=== PATIENT | male | born 1935 | race Caucasian/White ===

== ENCOUNTER 2018-07-05 14:55 | Emergency (ER) | payer MEDICARE ==
[~2018-07-05] VITALS: Ht 182.9 cm; Wt 102.1 kg
[2018-07-05] MEDS ORDERED: TETANUS/DIPHTHERIA TOX ADULT 0.5 ML SYR IM ONE (15:15)
--- NOTE | 2018-07-05 16:37 | Diagnostic Imaging Report ---
Exams: Head and maxillofacial CTs without IV contrast History: Trauma, fall Comparison studies: None Technique: Axial images were obtained to the vertex and maxillofacial region. Coronal and sagittal images reconstructed from the axial data. Dose modulation, iterative reconstruction, and/or weight based adjustment of the mA/kV was utilized to reduce the radiation dose to as low as reasonably achievable. Intravenous contrast: None Findings: Scalp: Left paramedian frontal/supraorbital soft tissue hematoma. Bones: No fractures, blastic or lytic lesions. Brain sulci: Mildly prominent. Ventricles: Mild compensatory dilatation. No hydrocephalus. Extra axial spaces: No mass, no fluid collection. Parenchyma: No mass, acute hemorrhage or acute or chronic cortical vascular insults. Scattered ill-defined and mildly confluent hypodensities in the supratentorial white matter are nonspecific but most compatible with chronic mall vessel ischemic changes. Sellar/suprasellar region: No abnormalities Craniocervical junction: Patent foramen magnum. No Chiari one malformation. Maxillofacial CT: Soft tissues: Left supraorbital soft tissue hematoma. Small nasal septal hematoma with associated subcutaneous emphysema. Incidental 3.7 mm metallic foreign body/BB within the oral tongue within the midline. Bones: Bones are demineralized. Minimally displaced fracture of the bony nasal septum which is otherwise deviated to the patient's left. Minimal cortical irregularity along the left paramedian nasal bones likely reflects minimally displaced fracture. Orbits: Globes: Intact Extra or intraconal abnormalities: None. Dentition: Multiple absent teeth with dental fillings and prior right mandibular root canal. There is incidental torus mandibularis. Paranasal sinuses: Clear Included cervical spine: Moderately degenerated disks from C2 to the included C5 level. Advanced multilevel facet arthrosis. The right C4 or C5 facets are fused. The right C2-C3 facets are partially fused. Uncovertebral and facet arthrosis result in mild foraminal stenosis on the left at C3-C4 and moderate foraminal stenosis on the right at C4-C5. Incidental findings: Intraocular lens replacement related to previous cataract surgery. Atherosclerotic calcifications in the cervical carotid bulbs carotid siphons and intradural vertebral arteries. IMPRESSION: Head CT: 1. Left supraorbital soft tissue hematoma without underlying fracture. 2. No acute intracranial abnormalities. 3. Mild generalized volume loss. 4. Moderate chronic microvascular ischemic changes. Maxillofacial CT: 1. Left supraorbital soft tissue hematoma. 2. Minimally displaced nasal bone and nasal septal fractures with small nasal septal hematoma and subcutaneous emphysema. 3. No other acute abnormalities. 4. Incidental foreign body/metallic BB within the oral cavity/tongue. Signed by: Dr. Roge Ramirez M.D. on 07/05/2018 4:34 PM
--- NOTE | 2018-07-06 09:09 | Consultation ---
DATE OF CONSULTATION: July 05, 2018 HOSPITAL CONSULTATION HISTORY OF PRESENT ILLNESS: I was kindly asked to see this 83-year-old man for evaluation of "septal hematoma." Patient experienced a fall and hit his face. Subsequent CT scan showed a minimally displaced nasal fracture and a small septal hematoma. PAST MEDICAL HISTORY AND PAST SURGICAL HISTORY: Reviewed in detail in the chart. PHYSICAL EXAMINATION: The tympanic membranes and external auditory canals were unremarkable. He had nasal dorsal laceration and a laceration of his forehead. Intranasal examination showed a roughly 1 cm x 2 cm area of swelling along the floor of the right nasal septum. The mucosa was intact without hematoma. On the left side, there was a S-shaped nasal septal deviation. Pharyngeal examination was unremarkable. There was no palpable cervical adenopathy. CT scan report was reviewed in detail. ASSESSMENT: 1. Minimally displaced nasal fracture which does not require additional therapy. 2. Nasal septal hematoma. PLAN: Close followup with consideration of incision and drainage based on clinical course. Thank you very much. Job#: [id number]
== END 2018-07-05 18:47 | disposition home or self-care (01) ==
LOC: FSED 14:55
DX: S02.2XXA Fracture of nasal bones, initial encounter for closed fracture (principal); S01.81XA Laceration without foreign body of other part of head, initial encounter; W18.39XA Other fall on same level, initial encounter; Y92.008 Other place in unspecified non-institutional (private) residence as the place of occurrence of the external cause; I10 Essential (primary) hypertension; Z87.891 Personal history of nicotine dependence
CPT/HCPCS: 70450; 70486; 90471; 90714; 99283